=== PATIENT | male | born 1995 ===

== ENCOUNTER 2018-08-26 13:40 | Emergency (ER) | payer SELFPAY ==
[~2018-08-26] VITALS: Ht 172.7 cm; Wt 63.5 kg
--- OUTSIDE RECORDS SUMMARY | 2018-08-26 13:45 | XMS REPORT ---
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 Role Phone PILO MCCORMICK Unavailable SULMAARNIE Unavailable Problems Problem SNOMED Onset Date Resolved Date Status N/A N/A N/A N/A N/A Allergies, Adverse Reactions NA Care Plan Medications Medication Code Dose,Form,Route,Freq Start Date End Date Ibuprofen Melatonin Wellbutrin SR - 100MG ORAL - 100MG, T12, PO (1)ea QAM hydrOXYzine Pamoate - 25MG ORAL - 25MG, CAP, PO (2)ea PRN-TID Lab Results NA Encounters Date Time Service Code Provider 02:30:00 pm PILO MCCORMICK 10:44:00 am PILO MCCORMICK Family History Functional Status NA Immunizations NA Vital Signs Date Time BP Pulse Temp Height Weight BMI 09:23:00 am 124 over 78 57 bpm 69 in 170 lbs 25.1 kg/m^2 Social History NA Hospital Discharge Instructions NA Hospital Discharge medications Date Medication Dose, Form, Route, Freq Code Ibuprofen Melatonin Instructions * Not Applicable Procedures NA Purpose Electronic Copy
--- OUTSIDE RECORDS SUMMARY | 2018-08-26 13:45 | XMS REPORT ---
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 Engage with treatment team to build rapport. Learn and practice coping skills to reduce symptoms and improve functioning. The following Services will be utilized 1 - 3 times until goal is reached: Improve and maintain functioning through medical psychiatric services. Initial Psychiatric Evaluation, Ongoing medication monitoring and management, Case Conference with multidisciplinary members of the [facility] team as indicated, and/or Collaboration and coordination with outside medical providers as indicated by providing the following services: 87641 interactive complexity 50577 psychiatric diagnostic eval w/ meds 82821 30 min psychotherapy add-on 99570 45 [place] [address] 60 min psychotherapy add-on 02175 med injection 70317 New Patient E&M (level 1) 18618 New Patient E&M (level 2) 22044 New Patient E&M (level 3) 40162 New patient E&M (level 4) 56375 New Patient E&M (level 5) 76865 Established Patient E&M (level 1) 68946 Established Patient E&M (level 2) 80004 Established Patient E&M (level 3) 94602 Established Patient E& amp;M (level 4) 42870 Established Patient E&M (level 5) 9935x prolonged service code 23096 case conference w/o clt & fam w/ [place] [address] case conference w/o clt w / MD Lab Results NA Encounters Date Time Service Code Provider 02:30:00 pm PILOLEVY ROMANO% 10:44:00 am PILOLEVY ORMANO% 12:00:00 am PSYCHIATRIC DIAGNOSTIC EVALUATION 26220 ARNIE OZUNA 12:00:00 am NEW PATIENT E&M LEVEL III 12132 LARISA BUENO Family History Functional Status NA Immunizations NA Vital Signs Date Time BP Pulse Temp Height Weight BMI 09:23:00 am 124 over 78 57 bpm 69 in 170 lbs 25.1 kg/m^2 Social History NA Hospital Discharge Instructions NA Instructions * Not Applicable Procedures NA Purpose Electronic Copy
--- NOTE | 2018-08-26 13:58 | ED Lower Extremity ---
General Chief Complaint: Lower Extremity Stated Complaint: L KNEE PAIN Source: patient Exam Limitations: no limitations History of Present Illness Date Seen by Provider: Aug 26, 2018 Time Seen by Provider: 13:55 Initial Comments to ER with left knee pain for 3 years since injuring it during rugby. Become worse over the past one week. No reinjury. He goes to school at the [employer]. He is not followed up with anyone else. He would like to have an MRI done today. No fevers or chills Onset: other Severity: moderate Pain/Injury Location: left knee Modifying Factors: Worse With Movement Allergies and Home Medications Home Medications No Active Prescriptions or Reported Meds Patient Home Medication List Home Medication List Reviewed: Yes Review of Systems Constitutional: see HPI EENTM: see HPI Respiratory: no symptoms reported Cardiovascular: no symptoms reported Genitourinary: no symptoms reported Musculoskeletal: see HPI Skin: no symptoms reported Psychiatric/Neurological: No Symptoms Reported Past Xrtujrp-Rxjftt-Cwcnnt Hx Patient Social History Alcohol Use: Occasionally Uses Recreational Drug Use: No Smoking Status: Never a Smoker Recent Foreign Travel: No Contact w/Someone Who Travel: No Recent Hopitalizations: No Seasonal Allergies Seasonal Allergies: No Past Medical History Surgeries: No Respiratory: No Cardiac: No Neurological: No Genitourinary: No Gastrointestinal: No Musculoskeletal: No Endocrine: No HEENT: No Cancer: No Psychosocial: No Integumentary: No Blood Disorders: No Physical Exam Vital Signs Vital Signs - First Documented 08/26/18 13:45 Temp 97.5 Pulse 68 Resp 18 B/P (MAP) 149/84 (105) Pulse Ox 98 Capillary Refill : Height, Weight, BMI Height: '" Weight: lbs. oz. kg; BMI Method: General Appearance: WD/WN, no apparent distress HEENT: PERRL/EOMI, normal ENT inspection Neck: non-tender, full range of motion Respiratory: no respiratory distress, no accessory muscle use Hips: bilateral hip non-tender, bilateral hip normal inspection, bilateral hip normal range of motion Legs: bilateral leg non-tender, bilateral leg normal inspection, bilateral leg normal range of motion Knees: left knee pain, left knee other (no effusion erythema or ecchymosis or deformity) Ankles: bilateral ankle non-tender, bilateral ankle normal inspection, bilateral ankle normal range of motion Feet: bilateral foot non-tender, bilateral foot normal inspection, bilateral foot normal range of motion Neurologic/Psychiatric: alert, normal mood/affect, oriented x 3 Skin: normal color, warm/dry Progress/Results/Core Measures Results/Orders Vital Signs/I&O 08/26/18 13:45 Temp 97.5 Pulse 68 Resp 18 B/P (MAP) 149/84 (105) Pulse Ox 98 Departure Communication (Admissions) Advised he would need to have MRI scheduled in the outpatient setting by either primary care or orthopedics. Despite going to school at the [facility] [employer] he would like to follow-up here. I'll provide him with a list of local orthopedists. Impression Primary Impression: Internal derangement of left knee Disposition: HOME, SELF-CARE Condition: Stable Departure-Patient Inst. Decision time for Depature: 13:57 Referrals: MYLES BURDICK JONATHAN MD IPSEN,ALKA JAIME,LOCAL PHYSICIAN (PCP) Primary Care Physician ROBIN MALONE MD, ROBERT F DO ZAFUTA,DOUG Turner MD Patient Instructions: Internal Derangement of the Knee Add. Discharge Instructions: 1. Call an orthopedist of your choosing on Tuesday to schedule further evaluation of the knee All discharge instructions reviewed with patient and/or family. Voiced understanding. Scripts No Active Prescriptions or Reported Meds AKIRA KING APRN Aug 26, 2018 13:58
[2018-08-26 14:00] VITALS: BP 149/84
== END 2018-08-26 14:00 | disposition home or self-care (01) ==
LOC: ER 13:41
DX: M23.92 Unspecified internal derangement of left knee (principal)
CPT/HCPCS: 99283